=== PATIENT | male | born 1995 ===

== ENCOUNTER 2017-11-29 14:21 | Inpatient (IN) | payer MEDICAID ==
[2017-11-29] MEDS ORDERED: Sodium Chloride 0.9% 1,000 ML IV STA (14:45)
--- NOTE | 2017-11-29 14:52 | ED PDOC ---
"Arrival/HPI - General Chief Complaint: Headache Time Seen by Provider: 11/29/17 14:37 Historian: Patient - History of Present Illness Narrative History of Present Illness (Text): 11/29/17 14:47 22 year old male, with no significant medical history, presents to the emergency department complaining of a headache for 2 days, along with abdominal pain and hematochezia this morning. Patient states he didn't take any medication for the pain. Patient denies any fever, chills, chest pain, shortness of breath, nausea, vomiting, diarrhea, back pain, neck pain, dizziness , or any other complaints. Time/Duration: < week (2 days) Symptom Onset: Gradual Symptom Course: Unchanged Activities at Onset: Light Context: Home Past Medical History - Provider Review Nursing Documentation Reviewed: Yes - Psychiatric Hx Psychophysiologic Disorder: No Hx Substance Use: No Family/Social History - Physician Review Nursing Documentation Reviewed: Yes Family/Social History: Unknown Family HX Smoking Status: Never Smoked Hx Alcohol Use: No Hx Substance Use: No Allergies/Home Meds Allergies/Adverse Reactions: Allergies No Known Allergies Allergy (Verified 11/29/17 14:29) Home Medications: Home Meds Medication Instructions Recorded Confirmed No Known Home Med 11/29/17 11/29/17 Review of Systems - Physician Review All systems were reviewed & negative as marked: Yes - Review of Systems Constitutional: Normal Eyes: Normal ENT: Normal Respiratory: Normal. absent: SOB, Cough Cardiovascular: Normal. absent: Chest Pain Gastrointestinal: Abdominal Pain, Hematochezia Genitourinary Male: Normal. absent: Dysuria, Frequency, Hematuria, Urinary Output Changes Musculoskeletal: Normal. absent: Back Pain, Neck Pain Skin: Normal. absent: Rash Neurological: Headache Endocrine: Normal Hemo/Lymphatic: Normal Psychiatric: Normal Physical Exam Vital Signs Reviewed: Yes Vital Signs Temp Pulse Resp BP Pulse Ox 11/29/17 18:29 98.8 F 86 18 111/62 98 11/29/17 14:29 99.9 F H 106 H 17 141/92 H 99 Temperature: Afebrile Blood Pressure: Hypertensive Pulse: Tachycardic Respiratory Rate: Normal Appearance: Positive for: Well-Appearing, Non-Toxic, Comfortable Pain Distress: None Mental Status: Positive for: Alert and Oriented X 3 - Systems Exam Head: Present: Atraumatic, Normocephalic Pupils: Present: PERRL Extroacular Muscles: Present: EOMI Conjunctiva: Present: Normal Mouth: Present: Moist Mucous Membranes Neck: Present: Normal Range of Motion. No: Meningeal Signs, MIDLINE TENDERNESS , JVD Respiratory/Chest: Present: Clear to Auscultation, Good Air Exchange. No: Respiratory Distress, Accessory Muscle Use Cardiovascular: Present: Regular Rate and Rhythm, Normal S1, S2. No: Murmurs Abdomen: No: Tenderness, Distention, Peritoneal Signs Rectal: Present: Hemorrhoids (external) Back: Present: Normal Inspection Upper Extremity: Present: Normal Inspection. No: Cyanosis, Edema Lower Extremity: Present: Normal Inspection. No: Edema Neurological: Present: GCS=15, CN II-XII Intact, Speech Normal Skin: Present: Warm, Dry, Normal Color. No: Rashes Psychiatric: Present: Alert, Oriented x 3, Normal Insight, Normal Concentration Medical Decision Making ED Course and Treatment: 11/29/17 14:56 Impression: 22 year old male presents to the emergency department complaining of headaches , abdominal pain, and hematochezia Plan: -- CT Abd & Pelvis -- CT Head -- US abdomen -- Labs -- Lipase -- Urinalysis -- Toradol -- Reglan -- Sodium Chloride -- Reassess and disposition Progress Notes: 11/29/17 20:15 CT Head reviewed, shows: Brain: No intracranial hemorrhage. No mass. No definite edema. Ventricles: No hydrocephalus. Bones/joints: No acute fracture. Soft tissues: Unremarkable. Sinuses: No acute sinusitis. Mastoid air cells: No mastoid effusion. Orbits: Unremarkable as visualized. IMPRESSION: No definite acute intracranial abnormality. 11/29/17 20:36 CT Abd and Pelvis reviewed, shows: Limitations: Streak artifact - mild. Lung bases: Minimal atelectasis. ABDOMEN: Liver: Fatty infiltration. Gallbladder and bile ducts: Wall thickening/mucosal enhancement/haziness of gallbladder fundus. No significant ductal dilation. Pancreas: No ductal dilation. No mass. Spleen: No splenomegaly. Adrenals: No mass. Kidneys and ureters: Too small to characterize lesion within RIGHT kidney. No hydronephrosis. Stomach and bowel: Segmental areas of probable underdistention of colon. No definite mural thickening. No obstruction. PELVIS: ALLIE MARTINEZ | Final Radiology Report CONFIDENTIALITY STATEMENT This report is intended only for use by the referring physician, and only in accordance with law. If you received this in error, call [phone]. Page 2 of 2 Appendix: Normal caliber. No inflammation. Bladder: Unremarkable. Reproductive: Unremarkable as visualized. ABDOMEN and PELVIS: Intraperitoneal space: No significant fluid collection. No free air. Bones/joints: No acute fracture. Soft tissues: Minimal gynecomastia. Vasculature: Unremarkable. No aneurysm. Lymph nodes: No pathologically enlarged lymph nodes. IMPRESSION: 1. Gallbladder wall thickening/Edmondson enhancement. Recommend ultrasound. 2. Incidental/non-acute findings are described above. 11/29/17 21:29 US Abdomen reviewed, shows: Liver: Fatty infiltration. No mass. No intrahepatic ductal dilatation. Gallbladder: No gallstones. Sludge. Up to 1.4 cm wall thickness. No pericholecystic fluid. No sonographic Mcmullen's sign. Common bile duct: No dilatation. No stones. Pancreas: Unremarkable as visualized. Kidneys: Normal echogenicity. No hydronephrosis. Spleen: No splenomegaly. Aorta: Unremarkable. No aneurysm. Inferior vena cava: Unremarkable. Free fluid: No significant free fluid. IMPRESSION: 1. Gallbladder wall thickening with sludge. Clinical correlation is needed. 2. Incidental/non-acute findings are described above. - Lab Interpretations Lab Results: 11/29/17 15:19 11/29/17 15:19 Lab Results 11/29/17 18:25: Urine Color Yellow, Urine Appearance Clear, Urine pH 6.0, Ur Specific [place] 1.015, Urine Protein Negative, Urine Glucose (UA) Negative, Urine Ketones Negative, Urine Blood Negative, Urine Nitrate Negative, Urine Bilirubin Negative, Urine Urobilinogen 0.2, Ur Leukocyte Esterase Negative 11/29/17 15:19: Sodium 142, Potassium 4.4, Chloride 99, Carbon Dioxide 26, Anion Gap 22 H, BUN 8, Creatinine 0.9, Est GFR ( Amer) > 60, Est GFR (Non -Af Amer) > 60, Random Glucose 102, Calcium 9.6, Total Bilirubin 1.1, AST 85 H, ALT 192 H, Alkaline Phosphatase 78, Total Protein 8.9 H, Albumin 5.1 H, Globulin 3.8, Albumin/Globulin Ratio 1.4, Lipase 73 11/29/17 15:19: PT 12.7 H, INR 1.11 H 11/29/17 15:19: WBC 11.8 H, RBC 5.76, Hgb 17.5, Hct 48.1, MCV 83.5, MCH 30.4, MCHC 36.4, RDW 12.7, Plt Count 217, MPV 10.0, Gran % 83.3 H, Lymph % (Auto) 9.7 L, [place] % (Auto) 6.6 H, Eos % (Auto) 0.2 L, Baso % (Auto) 0.2, Gran # 9.79 H, Lymph # (Auto) 1.1 L, [place] # (Auto) 0.8 H, Eos # (Auto) 0.0, Baso # (Auto) 0.02 - RAD Interpretation Radiology Orders: 11/29/17 14:45 ABD PELVIS PO & IV CONTRAST [CT] Stat HEAD W/O CONTRAST [CT] Stat 11/29/17 20:36 ABDOMEN COMPLETE [US] Stat - Medication Orders Current Medication Orders: Discontinued Medications Sodium Chloride (Sodium Chloride 0.9%) 1,000 mls @ 999 mls/hr IV .Q1H1M STA Stop: 11/29/17 15:45 Last Admin: 11/29/17 15:38 Dose: 999 mls/hr eMAR Start Stop Document 11/29/17 15:38 [email or web address] (Rec: 11/29/17 15:38 [email or web address] [id number]) Intravenous Solution Start Date 11/29/17 Start Time 15:38 End Date 11/29/17 Ketorolac Tromethamine (Toradol) 30 mg IVP STAT STA Stop: 11/29/17 14:46 Last Admin: 11/29/17 15:37 Dose: 30 mg MAR Pain Assessment Document 11/29/17 15:37 [email or web address] (Rec: 11/29/17 15:38 [email or web address] [id number]) Pain Reassessment Is this a pain reassessment? No Sleep Is patient sleeping during reassessment? No Presence of Pain Presence of Pain Yes Pain Scale Used Pain Scale Used Numeric Location Pain Location Body Site Abdomen Description Description Constant Intensity of Pain at present 7 Pain Behavior Facial Grimacing Aggravating Factors Changing Position Alleviating Factors/Management Position Change Techniques Alleviating Factors Medication IVP Administration Document 11/29/17 15:37 [email or web address] (Rec: 11/29/17 15:38 CASTS1 [id number]) Charges for Administration # of IVP Administrations 1 Metoclopramide HCl (Reglan) 10 mg IVP STAT STA Stop: 11/29/17 14:46 Last Admin: 11/29/17 15:38 Dose: 10 mg IVP Administration Document 11/29/17 15:38 [email or web address] (Rec: 11/29/17 15:38 CASTS1 [id number]) Charges for Administration # of IVP Administrations 1 Ondansetron HCl (Zofran Inj) 4 mg IVP STAT STA Stop: 11/29/17 15:12 Last Admin: 11/29/17 15:37 Dose: 4 mg IVP Administration Document 11/29/17 15:37 CASTS1 (Rec: 11/29/17 15:37 CASTS1 [id number]) Charges for Administration # of IVP Administrations 1 - Scribe Statement The provider has reviewed the documentation as recorded by the Umbertoibkelin Luu All medical record entries made by the Umbertoibkelin were at my direction and personally dictated by me. I have reviewed the chart and agree that the record accurately reflects my personal performance of the history, physical exam, medical decision making, and the department course for this patient. I have also personally directed, reviewed, and agree with the discharge instructions and disposition. Disposition/Present on Arrival - Present on Arrival History of DVT/PE: No History of Uncontrolled Diabetes: No Urinary Catheter: No History of Decub. Ulcer: No History Surgical Site Infection Following: None - Disposition Forms: [employer] (Thai)"
[2017-11-29] MEDS ORDERED: Iohexol 240 (50 ml) ONE (14:56)
[2017-11-29 15:37] LABS: BASO # 0.02 K/mm3 (0.0-2.0); BASO % 0.2 % (0.0-3.0); EOS % 0.2 % (1.5-5.0); GRAN # 9.79 (1.4-6.5); GRAN % 83.3 % (50.0-68.0); HEMOGLOBIN 17.5 g/dL (14.0-18.0); LYMPH # 1.1 (1.2-3.4); LYMPH % 9.7 % (22.0-35.0); MEAN CELL VOLUME 83.5 fl (80.0-105.0); MEAN CORPUSCULAR HEMOGLOBIN 30.4 pg (25.0-35.0); MEAN CORPUSCULAR HGB CONC 36.4 g/dl (31.0-37.0); MONO # 0.8 (0.1-0.6); MONO % 6.6 % (1.0-6.0); RBC 5.76 10^6/uL (3.5-6.1); RED CELL DISTRIBUTION WIDTH 12.7 % (11.5-14.5); WHITE BLOOD COUNT 11.8 10^3/ul (4.5-11.0)
[2017-11-29 15:45] LABS: INR 1.11 (0.93-1.08); PROTHROMBIN TIME 12.7 SECONDS (9.4-12.5)
[2017-11-29 15:53] LABS: ALB/GLOB RATIO 1.4 (1.1-1.8); ALBUMIN 5.1 g/dL (3.0-4.8); ALT/SGPT 192 U/L (7-56); AST/SGOT 85 U/L (17-59); BLOOD UREA NITROGEN 8 mg/dL (7-21); CALCIUM 9.6 mg/dL (8.4-10.5); GFR AFRICAN-AMERICAN > 60; GFR NON-AFRICAN AMERICAN > 60; LIPASE 73 U/L (23-300)
[2017-11-29] MEDS ORDERED: Iohexol 350 MG/100 ML VIAL ONE (16:18)
[2017-11-29 18:30] LABS: URINE APPEARANCE CLEAR (CLEAR); URINE BILIRUBIN NEGATIVE (NEGATIVE); URINE BLOOD NEGATIVE (NEGATIVE); URINE COLOR YELLOW (YELLOW); URINE GLUCOSE (UA) NEGATIVE (NEGATIVE); URINE LEUKOCYTE ESTERASE NEGATIVE Leu/uL (NEGATIVE); URINE PROTEIN NEGATIVE mg/dL (<30 mg/dL); URINE UROBILINOGEN 0.2 E.U./dL (<1 E.U./dL)
--- NOTE | 2017-11-29 20:08 | CT ---
EXAM: CT Head Without Intravenous Contrast CLINICAL HISTORY: 22 years old, male; Pain; Headache; Patient HX: Pt C/O ALEXANDER for 2 days TECHNIQUE: Axial computed tomography images of the head/brain without intravenous contrast. All CT scans at this facility use one or more dose reduction techniques, viz.: automated exposure control; ma/kV adjustment per patient size (including targeted exams where dose is matched to indication; i.e. head); or iterative reconstruction technique. Coronal and sagittal reformatted images were created and reviewed. COMPARISON: No relevant prior studies available. FINDINGS: Brain: No intracranial hemorrhage. No mass. No definite edema. Ventricles: No hydrocephalus. Bones/joints: No acute fracture. Soft tissues: Unremarkable. Sinuses: No acute sinusitis. Mastoid air cells: No mastoid effusion. Orbits: Unremarkable as visualized. IMPRESSION: No definite acute intracranial abnormality.
--- NOTE | 2017-11-29 20:33 | CT ---
EXAM: CT Abdomen and Pelvis With Intravenous Contrast CLINICAL HISTORY: 22 years old, male; Pain; Abdominal pain TECHNIQUE: Axial computed tomography images of the abdomen and pelvis with intravenous contrast. All CT scans at this facility use one or more dose reduction techniques, viz.: automated exposure control; ma/kV adjustment per patient size (including targeted exams where dose is matched to indication; i.e. head); or iterative reconstruction technique. Coronal and sagittal reformatted images were created and reviewed. CONTRAST: 100 mL of OMNI 350 administered intravenously. COMPARISON: No relevant prior studies available. FINDINGS: Limitations: Streak artifact - mild. Lung bases: Minimal atelectasis. ABDOMEN: Liver: Fatty infiltration. Gallbladder and bile ducts: Wall thickening/mucosal enhancement/haziness of gallbladder fundus. No significant ductal dilation. Pancreas: No ductal dilation. No mass. Spleen: No splenomegaly. Adrenals: No mass. Kidneys and ureters: Too small to characterize lesion within RIGHT kidney. No hydronephrosis. Stomach and bowel: Segmental areas of probable underdistention of colon. No definite mural thickening. No obstruction. PELVIS: Appendix: Normal caliber. No inflammation. Bladder: Unremarkable. Reproductive: Unremarkable as visualized. ABDOMEN and PELVIS: Intraperitoneal space: No significant fluid collection. No free air. Bones/joints: No acute fracture. Soft tissues: Minimal gynecomastia. Vasculature: Unremarkable. No aneurysm. Lymph nodes: No pathologically enlarged lymph nodes. IMPRESSION: 1. Gallbladder wall thickening/Edmondson enhancement. Recommend ultrasound. 2. Incidental/non-acute findings are described above.
--- NOTE | 2017-11-29 21:21 | US ---
EXAM: US Abdomen Complete CLINICAL HISTORY: 22 years old, male; Pain; Abdominal pain; Generalized; Additional info: Gb wall thickening and abdominal pain (seen on ct) TECHNIQUE: Real-time ultrasound of the abdomen (complete) with image documentation. COMPARISON: CT - ABD PELVIS PO IV CONTRAST 2017-11-29 19:16 FINDINGS: Liver: Fatty infiltration. No mass. No intrahepatic ductal dilatation. Gallbladder: No gallstones. Sludge. Up to 1.4 cm wall thickness. No pericholecystic fluid. No sonographic Mcmullen's sign. Common bile duct: No dilatation. No stones. Pancreas: Unremarkable as visualized. Kidneys: Normal echogenicity. No hydronephrosis. Spleen: No splenomegaly. Aorta: Unremarkable. No aneurysm. Inferior vena cava: Unremarkable. Free fluid: No significant free fluid. IMPRESSION: 1. Gallbladder wall thickening with sludge. Clinical correlation is needed. 2. Incidental/non-acute findings are described above.
--- NOTE | 2017-11-29 21:24 | CP.PCM.CON ---
History of Present Illness - History of Present Illness History of Present Illness: General Surgery Consult Note for Dr. Akins Reason for consult: gb wall thickeing and sludge concerning for acalculous cholecystitis 22 M with no significant PMH who presents to [facility] for complaint of abdominal pain and nausea/vomiting. Patient was seen and evaluated in the ED. Patient states symptoms began 2 days ago following a meal. Patient could not recall what exactly he ate but he remembers eating then a couple hours later the pain began. He had a few episodes of nausea/vomiting with nbnb emesis. The last one occurred earlier today. he rates pain as moderate. He describes pain as constant and sharp located in ruq radiating to epigastrium. Eating/drinkgin and palpation exacerbates symptoms while nothing alleviates them. He denies recent illness and sick contacts. Admits to subjective fever/chills at home, headache, hemorrhoids, and hematochezia. Denies chest pain, SOB, palpitations, diarrhea, incontinence or urinary symptoms. PMH: Denies Meds: Denies Allergy: NKDA PSH: Denies FH: father - [place] Social: denies smoking/Etoh/illicit drug use Review of Systems - Review of Systems All systems: reviewed and no additional remarkable complaints except (as per HPI ) Past Patient History - Past Social History Smoking Status: Never Smoked - PSYCHIATRIC Hx Psychophysiologic Disorder: No Hx Substance Use: No - SURGICAL HISTORY Hx Surgeries: No Meds Allergies/Adverse Reactions: Allergies Allergy/AdvReac Type Severity Reaction Status Date / Time No Known Allergies Allergy Verified 11/29/17 14:29 Physical Exam - Constitutional Appears: Well, Non-toxic, No Acute Distress - Head Exam Head Exam: ATRAUMATIC, NORMOCEPHALIC - Eye Exam Eye Exam: EOMI, Normal appearance. absent: Scleral icterus Pupil Exam: PERRL - ENT Exam ENT Exam: Mucous Membranes Moist - Neck Exam Neck exam: Positive for: Normal Inspection - Respiratory Exam Respiratory Exam: Clear to Auscultation Bilateral, NORMAL BREATHING PATTERN - Cardiovascular Exam Cardiovascular Exam: RRR, +S1, +S2 - GI/Abdominal Exam GI & Abdominal Exam: Distended (mild), Normal Bowel Sounds, Soft, Tenderness ( epigastric/RUQ). absent: Firm, Guarding, Hernia, Rebound, Rigid Additional comments: (+) Mcmullen's sign - Rectal Exam Rectal Exam: Deferred - Extremities Exam Extremities exam: Positive for: normal capillary refill, pedal pulses present. Negative for: calf tenderness - Back Exam Back exam: absent: CVA tenderness (L), CVA tenderness (R) - Neurological Exam Neurological exam: Alert, CN II-XII Intact, Oriented x3 - Psychiatric Exam Psychiatric exam: Normal Affect, Normal Mood - Skin Skin Exam: Dry, Intact, Normal Color, Warm Results - Vital Signs Recent Vital Signs: Last Vital Signs Temp 98.8 F 11/29/17 18:29 Pulse 86 11/29/17 18:29 Resp 18 11/29/17 18:29 BP 111/62 11/29/17 18:29 Pulse Ox 98 11/29/17 18:29 - Labs Result Diagrams: 11/29/17 15:19 11/29/17 15:19 Labs: Laboratory Results - last 24 hr 11/29/17 11/29/17 11/29/17 15:19 15:19 15:19 WBC 11.8 H RBC 5.76 Hgb 17.5 Hct 48.1 MCV 83.5 MCH 30.4 MCHC 36.4 RDW 12.7 Plt Count 217 MPV 10.0 Gran % 83.3 H Lymph % (Auto) 9.7 L [place] % (Auto) 6.6 H Eos % (Auto) 0.2 L Baso % (Auto) 0.2 Gran # 9.79 H Lymph # (Auto) 1.1 L [place] # (Auto) 0.8 H Eos # (Auto) 0.0 Baso # (Auto) 0.02 PT 12.7 H INR 1.11 H Sodium 142 Potassium 4.4 Chloride 99 Carbon Dioxide 26 Anion Gap 22 H BUN 8 Creatinine 0.9 Est GFR ( Amer) > 60 Est GFR (Non-Af Amer) > 60 Random Glucose 102 Calcium 9.6 Total Bilirubin 1.1 AST 85 H ALT 192 H Alkaline Phosphatase 78 Total Protein 8.9 H Albumin 5.1 H Globulin 3.8 Albumin/Globulin Ratio 1.4 Lipase 73 Urine Color Urine Appearance Urine pH Ur Specific [place] Urine Protein Urine Glucose (UA) Urine Ketones Urine Blood Urine Nitrate Urine Bilirubin Urine Urobilinogen Ur Leukocyte Esterase 11/29/17 18:25 WBC RBC Hgb Hct MCV MCH MCHC RDW Plt Count MPV Gran % Lymph % (Auto) [place] % (Auto) Eos % (Auto) Baso % (Auto) Gran # Lymph # (Auto) [place] # (Auto) Eos # (Auto) Baso # (Auto) PT INR Sodium Potassium Chloride Carbon Dioxide Anion Gap BUN Creatinine Est GFR ( Amer) Est GFR (Non-Af Amer) Random Glucose Calcium Total Bilirubin AST ALT Alkaline Phosphatase Total Protein Albumin Globulin Albumin/Globulin Ratio Lipase Urine Color Yellow Urine Appearance Clear Urine pH 6.0 Ur Specific [place] 1.015 Urine Protein Negative Urine Glucose (UA) Negative Urine Ketones Negative Urine Blood Negative Urine Nitrate Negative Urine Bilirubin Negative Urine Urobilinogen 0.2 Ur Leukocyte Esterase Negative Assessment & Plan - Assessment and Plan (Free Text) Assessment: 22 M with no PMH who presents for abdominal pain and nausea/vomiting likely secondary to acalculous cholecystitis; CT and ABUS both demonstrate gb wall thickening and sludge Plan: -NPO -IV fluids -IV antibiotics -Analgesics/Anti-emetics PRN -Will plan for laparoscopic cholecystectomy in [place] this admission -Further recommendations as per Dr. Tashi Capone PGY1 - Date & Time Date: 11/29/17 Time: 21:30
[2017-11-29] MEDS ORDERED: metroNIDAZOLE IV 500 mg/100 ml 500 MG/100 ML BAG IVPB STA (21:27)
[2017-11-29] MEDS ORDERED: levoFLOXacin 750 mg in D5W 150 ML BAG IVPB ONE (21:28)
[2017-11-29] MEDS ORDERED: HYDROmorphone 0.5 mg/0.5 ml ISec IVP PRN (22:18)
[2017-11-29] MEDS ORDERED: Vitamins A & D Oint UD Foilpak TOP PRN (22:20)
[2017-11-29] MEDS: Lactated Ringer's 1,000 ML IV SCH (22:30)
--- NOTE | 2017-11-29 22:32 | CP.PCM.HP ---
<Mega Torres - Last Filed: 11/29/17 22:22> History of Present Illness - History of Present Illness History of Present Illness: Mr. Altman is a 22 year old male with no significant past medical history who presents with four days of epigastric abdominal pain for the past four days with associated headache. Patient reports that four days ago after eating a meal high in salt and fat, he began to experience an intermittent sharp pain in the epigastric region with intermittent radiation to the RUQ. He reports that the pain is worsened with hunger but unaffected by PO intake or BM's. He also reports that he had a 100 degree reading on a thermometer at home. He denies ever having this pain in the past. He also reports that he has had intermittent nausea with two episodes of NBNB emesis. He endorses that the pain causes him to have a headache but that this headache is not present when his abdominal pain is not present. He denies any recent travel, sick contacts, chills, dizziness, changes in his vision, rhinorrhea, sore throat, neck pain/stiffness, dysphagia, chest pain, palpitations, SOB, cough, wheezing, diarrhea, constipation, melena, hematochezia, changes in urine output, skin lesions, or any numbness/tingling/weakness of any extremity. PMH: Denies PSH: Denies Family History: Non-contributory Social History: Denies any tobacco, alcohol or illicit drug abuse; Currently unemployed; Lives at home in with his and daughter Allergies: NKDA Home Medications: Men's MV Present on Admission - Present on Admission Any Indicators Present on Admission: No Review of Systems - Review of Systems Review of Systems: As stated in HPI, otherwise negative Past Patient History - Infectious Disease Hx of Infectious Diseases: None - Tetanus Immunizations Tetanus Immunization: Unknown - Past Medical History & Family History Past Medical History?: Yes Past Family History: Reviewed and not pertinent - Past Social History Smoking Status: Never Smoked - PSYCHIATRIC Hx Psychophysiologic Disorder: No Hx Substance Use: No - SURGICAL HISTORY Hx Surgeries: No Meds Allergies/Adverse Reactions: Allergies Allergy/AdvReac Type Severity Reaction Status Date / Time No Known Allergies Allergy Verified 11/29/17 14:29 Physical Exam - Constitutional Appears: Non-toxic, No Acute Distress - Head Exam Head Exam: ATRAUMATIC, NORMOCEPHALIC - Eye Exam Eye Exam: EOMI, Normal appearance, PERRL Pupil Exam: NORMAL ACCOMODATION, PERRL - ENT Exam ENT Exam: Mucous Membranes Moist, Normal Exam - Neck Exam Neck exam: Positive for: Full Rom, Normal Inspection. Negative for: Lymphadenopathy, Meningismus, Tenderness, Thyromegaly - Respiratory Exam Respiratory Exam: Clear to Auscultation Bilateral, NORMAL BREATHING PATTERN. absent: Accessory Muscle Use, Chest Wall Tenderness, Decreased Breath Sounds, Prolonged Expiratory Phase, Rales, Rhonchi, Wheezes, Respiratory Distress, Stridor - Cardiovascular Exam Cardiovascular Exam: REGULAR RHYTHM, RRR, +S1, +S2. absent: Bradycardia, Tachycardia, Clicks, Diastolic murmur, Gallop, Irregular Rhythm, JVD, Rubs, +S4 , Systolic Murmur - GI/Abdominal Exam GI & Abdominal Exam: Normal Bowel Sounds, Soft. absent: Bruit, Diminished Bowel Sounds, Distended, Firm, Guarding, Hernia, Hyperactive Bowel Sounds, Hypoactive Bowel Sounds, Mass, Organomegaly, Pulsatile Mass, Rebound, Rigid, Tenderness - Extremities Exam Extremities exam: Positive for: full ROM, normal capillary refill, normal inspection, pedal pulses present. Negative for: calf tenderness, joint swelling , pedal edema, tenderness - Back Exam Back exam: NORMAL INSPECTION - Neurological Exam Neurological exam: Alert, Normal Gait, Oriented x3 - Psychiatric Exam Psychiatric exam: Normal Affect, Normal Mood - Skin Skin Exam: Dry, Intact, Normal Color, Warm Results - Vital Signs Recent Vital Signs: Last Vital Signs Temp 98.8 F 11/29/17 18:29 Pulse 86 11/29/17 18:29 Resp 18 11/29/17 18:29 BP 111/62 11/29/17 18:29 Pulse Ox 98 11/29/17 18:29 - Labs Result Diagrams: 11/29/17 15:19 11/29/17 15:19 Assessment & Plan - Assessment and Plan (Free Text) Assessment: 22 year old male with no significant past medical history who presents with four days of epigastric abdominal pain for the past four days with associated headache. Patient was found to have gallbladder wall thickening with sludge on CT abdomen/pelvis and Abdominal US. Plan: 1. Cholecystitis -See CT Abdomen/Pelvis and Abdominal US reports -IV Flagyl and Levaquin -NPO Diet -Lactated Ringers at 125mls/hr -IV Dilaudid PRN for pain control -Zofran PRN for N/V -Surgery and GI consulted, all recommendations appreciated GI Prophylaxis: Protonix DVT Prophlaxis: SCD Patient seen and case discussed with attending, Dr. Rangel. Leonid PGY1 - Date & Time Date: 11/29/17 Time: 22:34 <Leta Rangel - Last Filed: 11/29/17 23:50> Results - Vital Signs Recent Vital Signs: Last Vital Signs Temp 98.8 F 11/29/17 18:29 Pulse 86 11/29/17 18:29 Resp 18 11/29/17 18:29 BP 111/62 11/29/17 18:29 Pulse Ox 99 11/29/17 22:35 - Labs Result Diagrams: 11/29/17 15:19 11/29/17 15:19 Attending/Attestation - Attestation I have personally seen and examined this patient.: Yes I have fully participated in the care of the patient.: Yes I have reviewed all pertinent clinical information: Yes Notes (Text): 11/29/17 23:49 Patient was seen when he was in [id number]. Agree with history , physical examination, assessment and plan. Gives family history of Lung cancer.(Father.).
[2017-11-30] MEDS: metroNIDAZOLE IV 500 mg/100 ml 500 MG/100 ML BAG IVPB SCH ×2 (05:21→14:51)
[2017-11-30 07:15] LABS: BASO # 0.03 K/mm3 (0.0-2.0); BASO % 0.6 % (0.0-3.0); EOS % 0.6 % (1.5-5.0); GRAN # 2.9 (1.4-6.5); GRAN % 53.5 % (50.0-68.0); LYMPH # 1.8 (1.2-3.4); LYMPH % 32.5 % (22.0-35.0); MEAN CELL VOLUME 83.1 fl (80.0-105.0); MEAN CORPUSCULAR HEMOGLOBIN 29.6 pg (25.0-35.0); MEAN CORPUSCULAR HGB CONC 35.6 g/dl (31.0-37.0); MEAN PLATELET VOLUME 10.1 fl (7.0-11.0); MONO # 0.7 (0.1-0.6); MONO % 12.8 % (1.0-6.0); RBC 5.1 10^6/uL (3.5-6.1); RED CELL DISTRIBUTION WIDTH 12.7 % (11.5-14.5); WHITE BLOOD COUNT 5.4 10^3/ul (4.5-11.0)
--- NOTE | 2017-11-30 07:17 | CP.PCM.PN ---
Subjective - Date & Time of Evaluation Date of Evaluation: 11/30/17 Time of Evaluation: 06:50 - Subjective Subjective: Surgery Progress note. Dr. Akins Pt seen and examined at bedside. No acute events overnight. Does report hunger. No more episodes of nausea or vomiting since yesterday upon arrival. Does have low-grade fever, Tmax 99.9F, denies chills. No new complaints. Objective - Vital Signs/Intake and Output Vital Signs (last 24 hours): Temp Pulse Resp BP Pulse Ox 99.6 F 97 H 18 127/79 99 11/29/17 23:40 11/29/17 23:40 11/29/17 23:40 11/29/17 23:40 11/29/17 22:35 - Medications Medications: Current Medications Hydromorphone HCl (Dilaudid) 0.5 mg IVP Q4H PRN PRN Reason: Pain, severe (8-10) Metronidazole (Flagyl) 500 mg in 100 mls @ 100 mls/hr IVPB Q8 [facility] PRN Reason: Protocol Last Admin: 11/30/17 05:21 Dose: 100 mls/hr Lactated Ringer's (Lactated Ringer's) 1,000 mls @ 125 mls/hr IV .Q8H TESSA Last Admin: 11/29/17 22:30 Dose: 125 mls/hr Levofloxacin/Dextrose (Levaquin 750mg) 750 mg IVPB DAILY [facility] PRN Reason: Protocol Ondansetron HCl (Zofran Inj) 4 mg IVP Q6H PRN PRN Reason: Nausea/Vomiting Pantoprazole Sodium (Protonix Inj) 40 mg IVP DAILY [facility] Vitamin A (Vitamin A & D Oint Ud Foilpak) 1 ea TOP Q2 PRN PRN Reason: Dry mouth - Labs Labs: PT 12.7 SECONDS (9.4-12.5) H 11/29/17 15:19 INR 1.11 (0.93-1.08) H 11/29/17 15:19 - Constitutional Appears: Non-toxic, No Acute Distress - Head Exam Head Exam: ATRAUMATIC, NORMAL INSPECTION, NORMOCEPHALIC - Eye Exam Eye Exam: EOMI, Normal appearance - ENT Exam ENT Exam: Mucous Membranes Moist - GI/Abdominal Exam GI & Abdominal Exam: Soft. absent: Distended, Firm, Guarding, Rigid, Tenderness , Rebound - Extremities Exam Extremities Exam: Normal Inspection. absent: Calf Tenderness - Neurological Exam Neurological Exam: Alert, Awake, Oriented x3 - Psychiatric Exam Psychiatric exam: Normal Affect, Normal Mood - Skin Skin Exam: Dry, Intact, Normal Color, Warm Assessment and Plan - Assessment and Plan (Free Text) Assessment: 22yo M with RUQ abd pain, evidence of GB wall thickening and sludge. Plan: - We offered laparoscopic cholecystectomy to the patient, however, he refused to have surgery at this time. He states that he would like his mother to return home from traveling prior to undergoing surgery, so that he has some support at home - Continue Abx: levaquin PO for 5 days - Low Fat diet - Follow up with Dr. Akins in clinic on , 12/02/17. Call for appointment: [phone] Further recs as per Dr. Tashi Cortez PGY1 surgery pager: [phone]
[2017-11-30 07:27] LABS: HEMOGLOBIN 15.1 g/dL (14.0-18.0)
[2017-11-30 07:31] LABS: INR 1.14 (0.93-1.08); PARTIAL THROMBOPLASTIN TIME 32.7 Seconds (25.1-36.5); PROTHROMBIN TIME 13.1 SECONDS (9.4-12.5)
[2017-11-30 07:35] LABS: ALB/GLOB RATIO 1.4 (1.1-1.8); ALBUMIN 4.2 g/dL (3.0-4.8); ALT/SGPT 205 U/L (7-56); AST/SGOT 85 U/L (17-59); BLOOD UREA NITROGEN 10 mg/dL (7-21); GFR AFRICAN-AMERICAN > 60; GFR NON-AFRICAN AMERICAN > 60
[2017-11-30] MEDS: Lactated Ringer's 1,000 ML IV SCH (08:05)
--- NOTE | 2017-11-30 08:16 | CP.PCM.CON ---
<Salina Lomeli - Last Filed: 11/30/17 11:57> History of Present Illness - History of Present Illness History of Present Illness: GI Fellow PGY4 Consult Note This is a 22 year old male with no significant past medical history who presents with a fe days of epigastric abdominal pain associated with nausea and vomiting. Patient reports that pain started soon after eating fatty [place] food, he began to experience an intermittent sharp pain in the epigastric region with intermittent radiation to the RUQ. He also reports that he had a temp of 100 degree at home. He denies ever having this pain in the past. He also reports that he has had intermittent nausea with two episodes of NBNB emesis. He denies any recent travel, sick contacts, diarrhea, constipation, melena, hematochezia. Pt feels better today while on abx and is hungry. ROS: A 12pt ROS was negative except as above. PMH: Denies PSH: Denies Family History: Neg for gallbladder disease Social History: Denies any tobacco, alcohol or illicit drug abuse Past Patient History - Infectious Disease Hx of Infectious Diseases: None - Tetanus Immunizations Tetanus Immunization: Unknown - Past Medical History & Family History Past Medical History?: Yes Past Family History: Reviewed and not pertinent - Past Social History Smoking Status: Never Smoked - CARDIAC Hx Cardiac Disorders: No - PULMONARY Hx Respiratory Disorders: No - NEUROLOGICAL Hx Neurological Disorder: No - HEENT Hx HEENT Problems: No - RENAL Hx Chronic Kidney Disease: No - ENDOCRINE/METABOLIC Hx Endocrine Disorders: No - HEMATOLOGICAL/ONCOLOGICAL Hx Blood Disorders: No - INTEGUMENTARY Hx Dermatological Problems: No - MUSCULOSKELETAL/RHEUMATOLOGICAL Hx Musculoskeletal Disorders: Yes Hx Back Pain: Yes Hx Falls: No - GASTROINTESTINAL Hx Gastrointestinal Disorders: No - GENITOURINARY/GYNECOLOGICAL Hx Genitourinary Disorders: No - PSYCHIATRIC Hx Psychophysiologic Disorder: No Hx Substance Use: No - SURGICAL HISTORY Hx Surgeries: No Meds Allergies/Adverse Reactions: Allergies Allergy/AdvReac Type Severity Reaction Status Date / Time No Known Allergies Allergy Verified 11/29/17 14:29 - Medications Medications: Current Medications Hydromorphone HCl (Dilaudid) 0.5 mg IVP Q4H PRN PRN Reason: Pain, severe (8-10) Metronidazole (Flagyl) 500 mg in 100 mls @ 100 mls/hr IVPB Q8 [facility] PRN Reason: Protocol Last Admin: 11/30/17 05:21 Dose: 100 mls/hr Lactated Ringer's (Lactated Ringer's) 1,000 mls @ 125 mls/hr IV .Q8H [facility] Last Admin: 11/30/17 08:05 Dose: Not Given Levofloxacin/Dextrose (Levaquin 750mg) 750 mg IVPB DAILY [facility] PRN Reason: Protocol Ondansetron HCl (Zofran Inj) 4 mg IVP Q6H PRN PRN Reason: Nausea/Vomiting Pantoprazole Sodium (Protonix Inj) 40 mg IVP DAILY [facility] Vitamin A (Vitamin A & D Oint Ud Foilpak) 1 ea TOP Q2 PRN PRN Reason: Dry mouth Physical Exam - Constitutional Appears: Non-toxic, No Acute Distress - Head Exam Head Exam: ATRAUMATIC, NORMAL INSPECTION, NORMOCEPHALIC - Eye Exam Eye Exam: EOMI, Normal appearance, PERRL Pupil Exam: PERRL - ENT Exam ENT Exam: Mucous Membranes Moist - Neck Exam Neck exam: Positive for: Full Rom, Normal Inspection - Respiratory Exam Respiratory Exam: Clear to Auscultation Bilateral, NORMAL BREATHING PATTERN - Cardiovascular Exam Cardiovascular Exam: REGULAR RHYTHM, RRR, +S1, +S2 - GI/Abdominal Exam GI & Abdominal Exam: Normal Bowel Sounds, Soft. absent: Distended, Guarding, Organomegaly, Tenderness - Rectal Exam Rectal Exam: Deferred - Extremities Exam Extremities exam: Positive for: full ROM, normal inspection - Back Exam Back exam: NORMAL INSPECTION - Neurological Exam Neurological exam: Alert, Oriented x3 - Psychiatric Exam Psychiatric exam: Normal Affect, Normal Mood - Skin Skin Exam: Dry, Intact, Normal Color, Warm Results - Vital Signs Recent Vital Signs: Last Vital Signs Temp 99.6 F 11/29/17 23:40 Pulse 97 H 11/29/17 23:40 Resp 18 11/29/17 23:40 BP 127/79 11/29/17 23:40 Pulse Ox 99 11/29/17 22:35 - Labs Result Diagrams: 11/30/17 07:00 11/30/17 07:00 Labs: Laboratory Results - last 24 hr 11/30/17 11/30/17 11/30/17 07:00 07:00 07:00 WBC 5.4 D RBC 5.10 Hgb 15.1 D Hct 42.4 MCV 83.1 MCH 29.6 MCHC 35.6 RDW 12.7 Plt Count 185 MPV 10.1 Gran % 53.5 Lymph % (Auto) 32.5 [place] % (Auto) 12.8 H Eos % (Auto) 0.6 L Baso % (Auto) 0.6 Gran # 2.90 Lymph # (Auto) 1.8 Henderson # (Auto) 0.7 H Eos # (Auto) 0.0 Baso # (Auto) 0.03 PT 13.1 H INR 1.14 H APTT 32.7 Sodium Potassium Chloride Carbon Dioxide Anion Gap BUN Creatinine Est GFR ( Amer) Est GFR (Non-Af Amer) Random Glucose Calcium Total Bilirubin AST ALT Alkaline Phosphatase Total Protein Albumin Globulin Albumin/Globulin Ratio BBK History Checked No verified bt 11/30/17 07:00 WBC RBC Hgb Hct MCV MCH MCHC RDW Plt Count MPV Gran % Lymph % (Auto) [place] % (Auto) Eos % (Auto) Baso % (Auto) Gran # Lymph # (Auto) Henderson # (Auto) Eos # (Auto) Baso # (Auto) PT INR APTT Sodium 141 Potassium 4.1 Chloride 101 Carbon Dioxide 28 Anion Gap 16 BUN 10 Creatinine 1.0 Est GFR ( Amer) > 60 Est GFR (Non-Af Amer) > 60 Random Glucose 102 Calcium 9.0 Total Bilirubin 0.9 AST 85 H ALT 205 H Alkaline Phosphatase 69 Total Protein 7.2 Albumin 4.2 Globulin 3.0 Albumin/Globulin Ratio 1.4 BBK History Checked Assessment & Plan - Assessment and Plan (Free Text) Assessment: This is a 22yM with no significant pmhx presenting with epigatric abdominal pain radiating to RUQ with associated N/V after eating a fatty meal. 1. Acute cholecystitis 2. Elevated LFTs Plan: -Continue supportive care with pain control and antiemetics -Abd US with gallbladder wall thickening and sludge -Continue IV abx -LFTs elevated due to acute cholecystitis, trend -NPO for possible OR today for lap corey -Surgical team following -Please call with any questions or concerns <Yair Jones - Last Filed: 11/30/17 13:42> Meds - Medications Medications: Current Medications Hydromorphone HCl (Dilaudid) 0.5 mg IVP Q4H PRN PRN Reason: Pain, severe (8-10) Metronidazole (Flagyl) 500 mg in 100 mls @ 100 mls/hr IVPB Q8 [facility] PRN Reason: Protocol Last Admin: 11/30/17 05:21 Dose: 100 mls/hr Lactated Ringer's (Lactated Ringer's) 1,000 mls @ 125 mls/hr IV .Q8H [facility] Last Admin: 11/30/17 08:05 Dose: Not Given Levofloxacin/Dextrose (Levaquin 750mg) 750 mg IVPB DAILY [facility] PRN Reason: Protocol Last Admin: 11/30/17 10:24 Dose: 750 mg Ondansetron HCl (Zofran Inj) 4 mg IVP Q6H PRN PRN Reason: Nausea/Vomiting Pantoprazole Sodium (Protonix Inj) 40 mg IVP DAILY [facility] Last Admin: 11/30/17 10:23 Dose: 40 mg Vitamin A (Vitamin A & D Oint Ud Foilpak) 1 ea TOP Q2 PRN PRN Reason: Dry mouth Results - Vital Signs Recent Vital Signs: Last Vital Signs Temp 98.6 F 11/30/17 09:01 Pulse 84 11/30/17 09:01 Resp 16 11/30/17 09:01 BP 121/72 11/30/17 09:01 Pulse Ox 100 11/30/17 09:01 - Labs Result Diagrams: 11/30/17 07:00 11/30/17 07:00 Labs: Laboratory Results - last 24 hr 11/30/17 11/30/17 11/30/17 07:00 07:00 07:00 WBC 5.4 D RBC 5.10 Hgb 15.1 D Hct 42.4 MCV 83.1 MCH 29.6 MCHC 35.6 RDW 12.7 Plt Count 185 MPV 10.1 Gran % 53.5 Lymph % (Auto) 32.5 Henderson % (Auto) 12.8 H Eos % (Auto) 0.6 L Baso % (Auto) 0.6 Gran # 2.90 Lymph # (Auto) 1.8 Henderson # (Auto) 0.7 H Eos # (Auto) 0.0 Baso # (Auto) 0.03 PT 13.1 H INR 1.14 H APTT 32.7 Sodium Potassium Chloride Carbon Dioxide Anion Gap BUN Creatinine Est GFR ( Amer) Est GFR (Non-Af Amer) Random Glucose Calcium Iron TIBC % Saturation Total Bilirubin AST ALT Alkaline Phosphatase Total Protein Albumin Globulin Albumin/Globulin Ratio Hepatitis A IgM Ab Hep Bs Antigen Hep B Core IgM Ab Hepatitis C Antibody Blood Type B POSITIVE Blood Type Confirm Antibody Screen Negative BBK History Checked No verified bt 11/30/17 11/30/17 11/30/17 07:00 07:00 07:40 WBC RBC Hgb Hct MCV MCH MCHC RDW Plt Count MPV Gran % Lymph % (Auto) [place] % (Auto) Eos % (Auto) Baso % (Auto) Gran # Lymph # (Auto) [place] # (Auto) Eos # (Auto) Baso # (Auto) PT INR APTT Sodium 141 Potassium 4.1 Chloride 101 Carbon Dioxide 28 Anion Gap 16 BUN 10 Creatinine 1.0 Est GFR ( Amer) > 60 Est GFR (Non-Af Amer) > 60 Random Glucose 102 Calcium 9.0 Iron TIBC % Saturation Total Bilirubin 0.9 AST 85 H ALT 205 H Alkaline Phosphatase 69 Total Protein 7.2 Albumin 4.2 Globulin 3.0 Albumin/Globulin Ratio 1.4 Hepatitis A IgM Ab Negative Hep Bs Antigen Negative Hep B Core IgM Ab Negative Hepatitis C Antibody Negative Blood Type Blood Type Confirm B POSITIVE Antibody Screen BBK History Checked 11/30/17 12:40 WBC RBC Hgb Hct MCV MCH MCHC RDW Plt Count MPV Gran % Lymph % (Auto) [place] % (Auto) Eos % (Auto) Baso % (Auto) Gran # Lymph # (Auto) [place] # (Auto) Eos # (Auto) Baso # (Auto) PT INR APTT Sodium Potassium Chloride Carbon Dioxide Anion Gap BUN Creatinine Est GFR ( Amer) Est GFR (Non-Af Amer) Random Glucose Calcium Iron 65 TIBC 324 % Saturation 20 Total Bilirubin AST ALT Alkaline Phosphatase Total Protein Albumin Globulin Albumin/Globulin Ratio Hepatitis A IgM Ab Hep Bs Antigen Hep B Core IgM Ab Hepatitis C Antibody Blood Type Blood Type Confirm Antibody Screen BBK History Checked Attending/Attestation - Attestation I have personally seen and examined this patient.: Yes I have fully participated in the care of the patient.: Yes I have reviewed all pertinent clinical information: Yes Notes (Text): 11/30/17 13:41 22 year old male admitted with abdominal pain, found to have gallstones and elevated LFTs. No biliary dilation to suggest choledocholithiasis. LFTs are hepatocellular pattern. Recommend eval for chronic liver disease and trend lfts over time. Appreciate surgical evaluation for cholecystectomy.
--- NOTE | 2017-11-30 08:19 | RAD ---
HISTORY: Pre-op COMPARISON: No prior. FINDINGS: LUNGS: No active pulmonary disease. PLEURA: No significant pleural effusion identified, no pneumothorax apparent. CARDIOVASCULAR: Normal. OSSEOUS STRUCTURES: No significant abnormalities. VISUALIZED UPPER ABDOMEN: Normal. OTHER FINDINGS: None. IMPRESSION: No active disease.
[2017-11-30 09:02] VITALS: RESP 16
[2017-11-30] MEDS ORDERED: levoFLOXacin 750 mg in D5W 150 ML BAG IVPB SCH (10:00)
[2017-11-30 12:10] LABS: HEPATITIS B SURFACE AG Negative (NEGATIVE)
[2017-11-30 12:15] LABS: HEPATITIS A IGM NEGATIVE (NEGATIVE); HEPATITIS B CORE AB NEGATIVE (NEGATIVE)
[2017-11-30 12:27] LABS: HEPATITIS C ANTIBODY NEGATIVE (NEGATIVE)
[2017-11-30 12:56] LABS: IRON 65 ug/dL (45-180)
[2017-11-30 13:05] LABS: % IRON SATURATION 20 % (20-55); TOTAL IRON BINDING CAPACITY 324 ug/dL (261-462)
--- NOTE | 2017-11-30 14:23 | CARD ---
APPROVED REPORT EKG Measurement Heart [id number] <Conclusion> Normal sinus rhythm Normal ECG
[2017-11-30 15:40] VITALS: BP 123/64; PULSE 86; TEMP 98.5; O2SAT 99
--- NOTE | 2017-11-30 18:21 | CP.PCM.DIS ---
Provider - Provider Date of Admission: 11/29/17 21:25 Attending physician: Anabel Pabon MD Primary care physician: Javi Adkins MD [place] [facility] - Lab Results Lab Results: Most Recent Lab Values WBC 5.4 10^3/ul (4.5-11.0) D 11/30/17 07:00 RBC 5.10 10^6/uL (3.5-6.1) 11/30/17 07:00 Hgb 15.1 g/dL (14.0-18.0) D 11/30/17 07:00 Hct 42.4 % (42.0-52.0) 11/30/17 07:00 MCV 83.1 fl (80.0-105.0) 11/30/17 07:00 MCH 29.6 pg (25.0-35.0) 11/30/17 07:00 MCHC 35.6 g/dl (31.0-37.0) 11/30/17 07:00 RDW 12.7 % (11.5-14.5) 11/30/17 07:00 Plt Count 185 10^3/uL (120.0-450.0) 11/30/17 07:00 MPV 10.1 fl (7.0-11.0) 11/30/17 07:00 Gran % 53.5 % (50.0-68.0) 11/30/17 07:00 Lymph % (Auto) 32.5 % (22.0-35.0) 11/30/17 07:00 Snyder % (Auto) 12.8 % (1.0-6.0) H 11/30/17 07:00 Eos % (Auto) 0.6 % (1.5-5.0) L 11/30/17 07:00 Baso % (Auto) 0.6 % (0.0-3.0) 11/30/17 07:00 Gran # 2.90 (1.4-6.5) 11/30/17 07:00 Lymph # (Auto) 1.8 (1.2-3.4) 11/30/17 07:00 Snyder # (Auto) 0.7 (0.1-0.6) H 11/30/17 07:00 Eos # (Auto) 0.0 (0.0-0.7) 11/30/17 07:00 Baso # (Auto) 0.03 K/mm3 (0.0-2.0) 11/30/17 07:00 PT 13.1 SECONDS (9.4-12.5) H 11/30/17 07:00 INR 1.14 (0.93-1.08) H 11/30/17 07:00 APTT 32.7 Seconds (25.1-36.5) 11/30/17 07:00 Sodium 141 mmol/L (132-148) 11/30/17 07:00 Potassium 4.1 mmol/L (3.6-5.0) 11/30/17 07:00 Chloride 101 mmol/L (98-107) 11/30/17 07:00 Carbon Dioxide 28 mmol/L (21-33) 11/30/17 07:00 Anion Gap 16 (10-20) 11/30/17 07:00 BUN 10 mg/dL (7-21) 11/30/17 07:00 Creatinine 1.0 mg/dl (0.8-1.5) 11/30/17 07:00 Est GFR ( Amer) > 60 11/30/17 07:00 Est GFR (Non-Af Amer) > 60 11/30/17 07:00 Random Glucose 102 mg/dL (70-110) 11/30/17 07:00 Calcium 9.0 mg/dL (8.4-10.5) 11/30/17 07:00 Iron 65 ug/dL (45-180) 11/30/17 12:40 TIBC 324 ug/dL (261-462) 11/30/17 12:40 % Saturation 20 % (20-55) 11/30/17 12:40 Ferritin 247.0 ng/mL 11/30/17 12:40 Total Bilirubin 0.9 mg/dL (0.2-1.3) 11/30/17 07:00 AST 85 U/L (17-59) H 11/30/17 07:00 ALT 205 U/L (7-56) H 11/30/17 07:00 Alkaline Phosphatase 69 U/L (38-126) 11/30/17 07:00 Total Protein 7.2 g/dL (5.8-8.3) 11/30/17 07:00 Albumin 4.2 g/dL (3.0-4.8) 11/30/17 07:00 Globulin 3.0 gm/dL 11/30/17 07:00 Albumin/Globulin Ratio 1.4 (1.1-1.8) 11/30/17 07:00 Lipase 73 U/L (23-300) 11/29/17 15:19 Urine Color Yellow (YELLOW) 11/29/17 18:25 Urine Appearance Clear (CLEAR) 11/29/17 18:25 Urine pH 6.0 (4.7-8.0) 11/29/17 18:25 Ur Specific [place] 1.015 (1.005-1.035) 11/29/17 18:25 Urine Protein Negative mg/dL (<30 mg/dL) 11/29/17 18:25 Urine Glucose (UA) Negative mg/dL (NEGATIVE) 11/29/17 18:25 Urine Ketones Negative mg/dL (NEGATIVE) 11/29/17 18:25 Urine Blood Negative (NEGATIVE) 11/29/17 18:25 Urine Nitrate Negative (NEGATIVE) 11/29/17 18:25 Urine Bilirubin Negative (NEGATIVE) 11/29/17 18:25 Urine Urobilinogen 0.2 E.U./dL (<1 E.U./dL) 11/29/17 18:25 Ur Leukocyte Esterase Negative [place]/uL (NEGATIVE) 11/29/17 18:25 Hepatitis A IgM Ab Negative (NEGATIVE) 11/30/17 07:00 Hep Bs Antigen Negative (NEGATIVE) 11/30/17 07:00 Hep B Core IgM Ab Negative (NEGATIVE) 11/30/17 07:00 Hepatitis C Antibody Negative (NEGATIVE) 11/30/17 07:00 Blood Type B POSITIVE 11/30/17 07:00 Blood Type Confirm B POSITIVE 11/30/17 07:40 Antibody Screen Negative 11/30/17 07:00 BBK History Checked No verified bt 11/30/17 07:00 Discharge Exam - Head Exam Head Exam: ATRAUMATIC, NORMAL INSPECTION, NORMOCEPHALIC Discharge Plan - Discharge Medications Prescriptions: Ciprofloxacin [Cipro] 500 mg PO BID #10 tab Metronidazole [Flagyl] 500 mg PO Q8 #15 tablet - Follow Up Plan Condition: GOOD Disposition: HOME/ ROUTINE Additional Instructions: Please take cipro twice a day for 5 days Please take flagyl every 8 hours for the next 5 days please follow a Low Fat diet Follow up with Dr. Akins in clinic on , 12/02/17. Call for appointment: [phone] Referrals: Javi Adkins MD [Primary Care Provider] -
[2017-11-30 20:31] LABS: IMMUNOGLOBULIN A 206.1 mg/dL (70.0-400.0); IMMUNOGLOBULIN G 1242.1 mg/dL (700.0-1600.0); IMMUNOGLOBULIN M 96.5 mg/dL (40.0-230.0)
[2017-12-01 07:15] LABS: CERULOPLASMIN 22 mg/dL (18-36)
== END 2017-11-30 21:16 | disposition home or self-care (01) | DRG 208 ==
LOC: ED 14:21 → ERH 21:25 → 5RSO 22:41
PROVIDERS: ADMIT Internal Medicine; ATTEND Internal Medicine
DX: K81.9 Cholecystitis, unspecified (principal); R51 Headache; K64.9 Unspecified hemorrhoids; K76.0 Fatty (change of) liver, not elsewhere classified